=== PATIENT | female | born 1980 | race Caucasian/White ===

== ENCOUNTER 2020-06-27 18:24 | Emergency (ER) | payer BC, SELFPAY ==
[2020-06-27 18:28] VITALS: BP 118/80; PULSE 93; RESP 18; TEMP 36.8; O2SAT 98; BMI 27.4
--- NOTE | 2020-06-27 18:41 | CT_ITS ---
PROCEDURE: CT HEAD/BRAIN WO CON CLINICAL INDICATION: blunt trauma; blurred vision L.eye Head injury with headache/pain, contusion, abrasion or hematoma. Blurred vision in the left COMPARISON: No exams were available for comparison TECHNIQUE: Axial images obtained. All CT scans at the facility use one or more dose reduction, viz: automated exposure control, ma/kV adjustment per patient size (including targeted exams where dose is matched to indication, i.e. head), or iterative reconstruction technique. FINDINGS: No midline shift, mass effect, intracranial hemorrhage, hydrocephalus, or extra-axial fluid collection is evident. The calvarium has an unremarkable appearance. No mastoid effusion. No sinus air-fluid level. IMPRESSION: No acute intracranial finding Dictated by: Anil Barillas MD 06/28/2020 07:20 Anil Barillas MD in [place] 06/28/2020 07:20
--- NOTE | 2020-06-27 18:42 | XR_ITS ---
PROCEDURE: XR HIP BI W PEL1V CLINICAL INDICATION: thrown from horse Posttraumatic pain COMPARISON: No exams were available for comparison FINDINGS: No fracture or dislocation is evident. No significant degenerative change. No lytic or blastic change. Unremarkable soft tissues. IMPRESSION: No acute findings. Dictated by: Anil Barillas MD 06/28/2020 07:15 Anil Barillas MD in [place] 06/28/2020 07:15
--- NOTE | 2020-06-27 18:44 | HMH.EDFALL ---
ED Disposition Clinical Impression: Closed head injury Qualifiers: Encounter type: initial encounter Qualified Code(s): S09.90XA - Unspecified injury of head, initial encounter Disposition: Home, Self-Care Condition on Discharge: Good Prescriptions: Cyclobenzaprine HCl [Cyclobenzaprine 5mg Tab] 5 mg PO Q8HP PRN #30 tab PRN Reason: pain/spasm Transmission Status: [id number] Ketorolac Tromethamine [Toradol 10mg tablet] 10 mg PO Q6H 5 Days #20 tab Transmission Status: Pending to [id number] Referrals: Karin Chung MD [Primary Care Provider] - - Critical Care Critical Care Time: No Attestation: On 06/27/20, the high probability of a clinically significant, sudden or life threatening deterioration of the following system(s) required my full and direct attention, intervention and personal management. The time I documented below is in addition to time spent performing reported procedures but includes the following listed in this critical care notation. Medical Decision Making - Medical Records Medical records reviewed: Yes: I reviewed the patient's medical records. - Shawn Inquiry Pt receiving controlled substance: No Vital Signs: 06/27/20 18:28 06/27/20 19:00 Temperature 98.2 F Temperature Source Oral Pulse Rate [Right Brachial] 93 H 90 Respiratory Rate 18 20 Blood Pressure [Right Arm] 118/80 114/77 Blood Pressure Mean [Right Arm] 92 89 Blood Pressure Source [Right Arm] Automatic Cuff 02 Sat by Pulse Oximetry 98 100 Oxygen Delivery Method Room Air Orders (Tests/Meds): ED MEDICATIONS Discontinued Medications Generic Name Dose Route Start Last Admin Trade Name Freq PRN Reason Stop Dose Admin Ketorolac Tromethamine 30 mg 06/27/20 18:44 06/27/20 18:58 Ketorolac 30mg/Ml Vial IV 06/27/20 18:45 30 mg ONCE ONE Administration Orphenadrine Citrate 60 mg 06/27/20 18:44 06/27/20 18:58 Orphenadrine Citrate 60mg/2ml Vial IV 06/27/20 18:45 60 mg ONCE ONE Administration ORDERS Category Date Time Status CT cervical spine wo con Stat Cat Scan 06/27/20 18:[address] head/brain wo con Stat Cat Scan 06/27/20 18:41 Taken XR chest AP Stat Exams 06/27/20 19:29 Taken XR hip BI w PEL1V Stat Exams 06/27/20 18:42 Taken - Radiology Data #1 Image(s): Chest Image Reviewed: Yes I reviewed the patient's radiology results Preliminary Findings: Normal/NAD #2 Image(s): Pelvis, Hip Image Reviewed: Yes I reviewed the patient's radiology results Preliminary Findings: Normal/NAD - CT Data CT Scan: Head, C-Spine Time Received: 19:[address] Reviewed: Yes: I have reviewed the patient's CT results, I have viewed the radiologist's interpretation Preliminary Findings: Normal/NAD Findings Narrative: ? old vertebral body compression fx; no acute edema indicating acute fx Fall HPI - General Chief Complaint: Fall Stated Complaint: AO [id number] injured Head, Time Seen by Provider: 06/27/20 18:40 Mode of Arrival: Ambulatory Limitations: No Limitations Description of Symptoms (Recalled from ER Triage Doc. by RN): Pt reports she was on a horse approx 45 min ago, and she was thrown off of it. Reports she landed on her right hip, and reports that she did not lose consciousness. Pt reports left hip pain, pelvic pain, pain in her head, dizziness, and blurry vision in the left eye. A&Ox4, no neurological deficits noted on exam. - History of Present Illness HPI Narrative: This is a 39-year-old female that presents after being thrown from a horse. Patient reports horse was at [place] whenever she was thrown. She landed on the right side of her body striking her head and hip/pelvis to the ground. Patient reports pain that radiates over to the pelvis into the left hip. Patient also reports headache and had transient episode of blurred vision in the left eye. Pain is sharp constant worse with ambulation and weightbearing. Pain is mod
--- NOTE | 2020-06-27 18:46 | CT_ITS ---
PROCEDURE: CT CERVICAL SPINE WO CON CLINICAL INDICATION: thrown off horse Neck injury with pain, contusion/abrasion or hematoma, cervical sprain/strain the COMPARISON: No exams were available for comparison TECHNIQUE: Axial images obtained with sagittal and coronal reformats. All CT scans at the facility use one or more dose reduction, viz: automated exposure control, ma/kV adjustment per patient size (including targeted exams where dose is matched to indication, i.e. head), or iterative reconstruction technique. Axial spiral CT scanning performed of the cervical spine beginning at the base of the skull and continuing to the upper T-spine. 3-D multiplanar reconstruction with 3-D manipulation of volumetric data set in image rendering was completed by the radiologist and/or technologist with the supervision of the radiologist on independent workstation. FINDINGS: There is normal alignment. There is mild wedging involving the C6 vertebral body with loss of height centrally and anteriorly of approximately 30 percent. There is minimal retropulsion of the posterior superior aspect of the C7 vertebral body by approximately 3 mm. No other significant anomalies are evident. Lung apices are clear. IMPRESSION: Mild C7 vertebral body compression deformity age indeterminate with minimal retropulsion. MRI may better determine age clinically desired and to evaluate for any impingement. Dictated by: Anil Barillas MD 06/28/2020 07:24 Anil Barillas MD in [place] 06/28/2020 07:24
--- NOTE | 2020-06-27 18:51 | PC.NURSE ---
Report handed off to Charanjit RN
[2020-06-27 19:00] VITALS: BP 114/77; PULSE 90; RESP 20; O2SAT 100
--- NOTE | 2020-06-27 19:29 | XR_ITS ---
PROCEDURE: XR CHEST AP CLINICAL HISTORY: THROWN OFF HORSE Posttraumatic pain COMPARISON: No exams were available for comparison FINDINGS: The cardiomediastinal silhouette and pulmonary vascularity are within normal limits. There is mild nonspecific prominence of the azygos vein. The lungs are clear without infiltrates, suspicious nodules, or pleural effusions. No acute bony abnormalities. IMPRESSION: No acute findings. Dictated by: Anil Barillas MD 06/28/2020 07:14 Anil Barillas MD in [place] 06/28/2020 07:14
--- NOTE | 2020-06-27 19:40 | PC.NURSE ---
return from ct via stretcher at this time.
[2020-06-27 19:45] VITALS: BP 111/72; PULSE 88; RESP 16; O2SAT 98
--- NOTE | 2020-06-27 19:45 | PC.NURSE ---
speaking with MALDONADO
[2020-06-27 20:03] VITALS: BP 116/73; PULSE 87; RESP 15; TEMP 36.7; O2SAT 100
== END 2020-06-27 20:11 | disposition home or self-care (01) ==
PROVIDERS: Emergency Provider Emergency Medicine; PCP Family Medicine
DX: S09.90XA Unspecified injury of head, initial encounter (principal); S70.01XA Contusion of right hip, initial encounter; V80.010A Animal-rider injured by fall from or being thrown from horse in noncollision accident, initial encounter; Y93.52 Activity, horseback riding; Y92.73 Farm field as the place of occurrence of the external cause
CPT/HCPCS: 70450; 71045; 72125; 73521; 96374; 96375; 99283

== ENCOUNTER 2021-02-13 17:52 | Emergency (ER) | payer BC, SELFPAY ==
[2021-02-13 17:55] VITALS: BP 117/72; PULSE 78; RESP 20; TEMP 36.7; O2SAT 100; BMI 27.8
--- NOTE | 2021-02-13 18:28 | HMH.EDUTC ---
[facility] [place] Impression: COVID-19 virus test result unknown Disposition: Home, Self-Care Condition on Discharge: Good Instructions: DI for COVID-19 (Suspected or Confirmed ), COVID-19: Protecting Yourself When You're at High Risk Additional Instructions: covid swab was sent to lab, call later today for results. self isolate until test results are known to be negative Referrals: Karin Chung MD [Primary Care Provider] - Time of Disposition: 18:35 Medical Decision Making - Shawn Inquiry Pt receiving controlled substance: No Vital Signs: 02/13/21 17:55 Temperature 98.1 F Temperature Source Oral Pulse Rate [Left Brachial] 78 Respiratory Rate 20 Blood Pressure [Right Arm] 117/72 Blood Pressure Mean [Right Arm] 87 Blood Pressure Source [Right Arm] Automatic Cuff Blood Pressure Position [Right Arm] Sitting 02 Sat by Pulse Oximetry 100 Oxygen Delivery Method Room Air Orders (Tests/Meds): ORDERS Category Date Time Status Covid-19 Nasal PCR ([facility]) Routine Lab 02/13/21 18:05 [place]ceived [facility] - General Chief complaint: [facility] Stated complaint: covid test Time Seen by Provider: 02/13/21 18:29 Mode of Arrival: Ambulatory Source of Information: Patient Limitations: No Limitations Description of Symptoms (Recalled from Triage Doc. by RN): COVID TEST D/T EXPOSURE. DENIES SYMPTOMS HEENT Symptoms (Recalled from RN notes): No Resp Symptoms (Recalled from RN notes): No Skin Symptoms (Recalled from RN notes): No MS Symptoms (Recalled from RN notes): No Functional Status (Recalled from RN notes): WNL - History of Present Illness Provider Complaint: 40 yr old female presents for covid test. exposer but no symptoms - Related Data Previous Rx's Medication Instructions Recorded Cyclobenzaprine HCl 5 mg PO Q8HP PRN #30 tab 06/27/20 [Cyclobenzaprine 5mg Tab] Ketorolac Tromethamine [Toradol 10 mg PO Q6H 5 Days #20 tab 06/27/20 10mg tablet] Allergies Allergy/AdvReac Type Severity Reaction Status Date / Time No Known Allergies Allergy Verified 06/27/20 18:43 - Worker's Comp Is this a Worker's Comp case?: No [facility] History - Hepatitis A Screen Drug use history?: No High risk sexual behaviors?: No History of sexually transmitted infection?: No Currently employed?: No Childcare worker?: No Do you have indoor plumbing?: Yes Do you have electricity?: Yes Attestation statement:: This patient has been screened for Hepatitis A risk factors. I have reviewed the patient's past medical history: Yes Medical History: Denies:: Cancer, Diabetes Mellitus Type 1, Diabetes Mellitus Type 2, MRSA Amputation: No - Social History Alcohol Intake: never Occupational Status: employed Housing: house ROS Obtained: Yes Systems reviewed as appropriate & no additional complaints - Constitutional Constitutional: Reports system reviewed and no additional complaints, except as docu, Denies fever(s) - Eyes Eyes: Reports system reviewed and no additional complaints, except as docu, Denies blurry vision - ENT Ears, Nose, Mouth, and Throat: Reports system reviewed and no additional complaints, except as docu, Denies dizziness - Cardiovascular Cardiovascular: Reports system reviewed and no additional complaints, except as docu, Denies chest pain - Respiratory Respiratory: Reports system reviewed and no additional complaints, except as docu, Denies change in phlegm color - Gastrointestinal Gastrointestingal: Reports: system reviewed and no additional complaints, except as docu. Denies: vomiting - Genitourinary Female Genitourinary: Reports system reviewed and no additional complaints, except as docu - Musculoskeletal Musculoskeletal: Reports system reviewed and no additional complaints, except as docu, Denies joint pain - Integumentary/Breasts Skin/Breast: Reports system reviewed and no additional complaints, except as docu, Denies rash - Neurologic Neurolo
[2021-02-13 18:41] VITALS: BP 117/72; PULSE 78; RESP 20; TEMP 36.7; O2SAT 100
== END 2021-02-13 18:48 | disposition home or self-care (01) ==
PROVIDERS: Emergency Provider Nurse Practitioner Family; PCP Family Medicine
DX: Z20.822 Contact with and (suspected) exposure to COVID-19 (principal)
CPT/HCPCS: 99202; G0463; U0003

== ENCOUNTER 2021-05-03 17:04 | Emergency (ER) | payer BC, SELFPAY ==
[2021-05-03 17:06] VITALS: BP 108/79; PULSE 77; RESP 16; TEMP 36.9; O2SAT 99; BMI 28.3
--- NOTE | 2021-05-03 17:22 | CT_ITS ---
PROCEDURE INFORMATION: Exam: CT Abdomen And Pelvis With Contrast Exam date and time: 05/03/21 05:22 PM Age: 40 years old Clinical indication: Abdominal pain; Localized; Left lower quadrant (llq); Prior surgery; Surgery type: Gallbladder, hysterotomy; Additional info: Abd pain TECHNIQUE: Imaging protocol: Computed tomography of the abdomen and pelvis with contrast. Radiation optimization: All CT scans at this facility use at least one of these dose optimization techniques: automated exposure control; mA and/or kV adjustment per patient size (includes targeted exams where dose is matched to clinical indication); or iterative reconstruction. Contrast material: ISOVUE; Contrast volume: 75 ml; Contrast route: IV; COMPARISON: CR XR HIP BI W PEL1V 06/27/20 07:25 PM FINDINGS: Tubes, catheters and devices: None noted. Lungs: Lung bases appear clear. Heart: No significant coronary calcifications. No cardiomegaly. No significant pericardial effusion. Liver: Normal. No mass. Gallbladder and bile ducts: Cholecystectomy. No ductal dilation. Pancreas: Normal. No ductal dilation. Spleen: Normal. No splenomegaly. Adrenal glands: Normal. No mass. Kidneys and ureters: Normal. No hydronephrosis. Stomach and bowel: Unremarkable. No obstruction. No mucosal thickening. Appendix: No evidence of appendicitis. Intraperitoneal space: Unremarkable. No free air. No significant fluid collection. Retroperitoneal space: No significant retroperitoneal inflammatory changes are noted. Vasculature: Unremarkable. No abdominal aortic aneurysm. Lymph nodes: Unremarkable. No enlarged lymph nodes. Urinary bladder: Unremarkable as visualized. Reproductive: Hysterectomy. Bones/joints: Unremarkable. No acute fracture. Soft tissues: Unremarkable. IMPRESSION: No acute findings.
[2021-05-03 17:26] LABS: Microscopic, Urine URINE MICROSCOPIC (MICROSCOPIC)
[2021-05-03 17:29] LABS: Appearance,Urine CLEAR (Clear); Bilirubin,Urine Negative (Negative); Blood, Urine Negative (Negative); Color,Urine YELLOW (Yellow); Glucose,Urine (UA) Negative (Negative); Ketones,Urine Negative (Negative); Leukocyte Esterase,Urine Negative (Negative); Nitrate,Urine Negative (Negative); Protein,Urine Negative (Negative); Urobilinogen,Urine 0.2 EU/dl (0.2)
[2021-05-03 17:34] LABS: Chloride 102 mmol/L (98-107); Potassium 3.8 mmoL/L (3.5-5.1); Sodium 138 mmol/L (136-145)
[2021-05-03 17:36] LABS: Blood Urea Nitrogen 13 mg/dl (7-17); Creatinine Clearance Estimated 88 mL/min (50-200); Estimated Glomerular Filt Rate 69 ml/min (>60); GFR (African American) 83 ML/MIN (>60)
[2021-05-03 17:37] LABS: Alanine Aminotransferase 17 U/L (12-78); Albumin Level 4.5 g/dl (3.5-5.0); Albumin/Globulin Ratio 1.4 (1.1-1.8); Alkaline Phosphatase 48 U/L (38-126); Anion Gap 11.8 mEq/L (5-15); Aspartate Amino Transferase 26 U/L (14-36); Bilirubin,Total 0.3 mg/dl (0.2-1.3); Calcium 10.2 mg/dl (8.4-10.2); Carbon Dioxide 28 mmol/L (22.0-30.0); Globulin 3.3 g/dL (1.3-3.2); Glucose 101 mg/dl (74-100); Lipase 145 U/L (23-300); Total Protein,Serum 7.8 g/dl (6.3-8.2)
[2021-05-03 17:53] LABS: Basophils # 0.2 K/mm3 (0-0.2); Basophils % 2.2 % (0.1-2.0); Eosinophils # 0.1 K/mm3 (0.0-0.4); Eosinophils % 1.1 % (0.1-12.0); Hematocrit 42.4 % (37.0-47.0); Hemoglobin 14.4 g/dL (12.2-16.2); Lymphocytes # 2.6 K/mm3 (0.7-4.5); Lymphocytes % 30.8 % (10-50); Mean Corpuscular HGB Conc 33.9 g/dL (31.8-35.4); Mean Corpuscular Hemoglobin 30.8 pg (27.0-31.2); Mean Corpuscular Volume 90.9 fl (81-99); Mean Platelet Volume 8.2 fl (7.4-10.4); Monocytes # 0.4 K/mm3 (0.1-1.0); Neutrophils # 5.2 K/mm3 (1.8-7.8); Neutrophils % 60.9 % (37.0-80.0); Platelet Count 302 K/mm3 (142-424); Red Blood Count 4.67 M/mm3 (4.20-5.40); White Blood Count 8.5 K/mm3 (4.8-10.8)
--- NOTE | 2021-05-03 18:53 | HMH.EDGENADL ---
ED Disposition Clinical Impression: Abdominal pain Qualifiers: Abdominal location: epigastric Qualified Code(s): R10.13 - Epigastric pain Disposition: Home, Self-Care Condition on Discharge: Good Instructions: DI for Acute Abdominal Pain Referrals: Provider,Referral, [Primary Care Provider] - - Critical Care Critical Care Time: No Attestation: On 05/03/21, the high probability of a clinically significant, sudden or life threatening deterioration of the following system(s) required my full and direct attention, intervention and personal management. The time I documented below is in addition to time spent performing reported procedures but includes the following listed in this critical care notation. Medical Decision Making - Medical Records Medical records reviewed: Yes: I reviewed the patient's medical records. - Shawn Inquiry Pt receiving controlled substance: No Vital Signs: 05/03/21 17:06 Temperature 98.4 F Temperature Source Oral Pulse Rate [Radial] 77 Respiratory Rate 16 Blood Pressure [Right Arm] 108/79 L Blood Pressure Mean [Right Arm] 88 Blood Pressure Position [Right Arm] Sitting 02 Sat by Pulse Oximetry 99 Oxygen Delivery Method Room Air - Lab Data Lab Results 05/03/21 17:13: Urine Color Yellow, Urine Appearance Clear, Urine pH 7.0, Ur Specific Aurelia 1.010, Urine Protein Negative, Urine Glucose (UA) Negative, Urine Ketones Negative, Urine Blood Negative, Urine Nitrate Negative, Urine Bilirubin Negative, Urine Urobilinogen 0.2, Ur Leukocyte Esterase Negative, Urine RBC None, Urine WBC None, Ur Squamous Epith Cells 5-10, Urine Bacteria None 05/03/21 17:23: WBC 8.5, RBC 4.67, Hgb 14.4, Hct 42.4, MCV 90.9, MCH 30.8, MCHC 33.9, RDW 13.0, Plt Count 302, MPV 8.2, Neut % (Auto) 60.9, Lymph % (Auto) 30.8, Henderson % (Auto) 5.0, Eos % (Auto) 1.1, Baso % (Auto) 2.2 H, Neut # (Auto) 5.2, Lymph # (Auto) 2.6, Henderson # (Auto) 0.4, Eos # (Auto) 0.1, Baso # (Auto) 0.2 05/03/21 17:23: Sodium 138, Potassium 3.8, Chloride 102, Carbon Dioxide 28, Anion Gap 11.8, BUN 13, Creatinine 0.90, Estimated Creat Clear 88, Estimated GFR 69, Est GFR ( Amer) 83, Glucose 101 H, Calcium 10.2, Total Bilirubin 0.3, AST 26, ALT 17, Alkaline Phosphatase 48, Total Protein 7.8, Albumin 4.5, Globulin 3.3 H, Albumin/Globulin Ratio 1.4, Lipase 145 Result diagrams: 05/03/21 17:23 05/03/21 17:23 Orders (Tests/Meds): ED MEDICATIONS Discontinued Medications Generic Name Dose Route Start Last Admin Trade Name Freq PRN Reason Stop Dose Admin Belladonna Alkaloids 60 ml 05/03/21 18:50 05/03/21 18:59 Gi Cocktail 60ml Udc PO 05/03/21 18:51 60 ml ONCE ONE Administration Iopamidol 75 ml 05/03/21 17:46 05/03/21 17:47 Iopamidol-370 (76%);100ml Bottle IV 05/03/21 17:47 75 ml ONCE ONE Administration Sodium Chloride 10 ml 05/03/21 17:46 05/03/21 17:47 Sodium Chloride 0.9% 10ml Syr (Rad Only) IV 05/03/21 17:47 10 ml ONCE ONE Administration Medical Decision Narrative: Patient is a 40-year-old female presents the ED today for further evaluation of abdominal pain. Patient is well-appearing on initial evaluation in no acute distress with stable vital signs. I have ordered CBC CMP lipase, CT abdomen pelvis with IV contrast and urinalysis. Patient not requesting any pain medications at this time, I have offered nausea medication and additionally states she will continue to monitor her symptoms and see how she does. Patient CT abdomen pelvis is been performed with no evidence of intra-abdominal infection or perforation, no other acute intra-abdominal findings on radiology interpretation. I reviewed patient's lab evaluation with no evidence of anemia kidney dysfunction or liver or electrolyte abnormalities. Urinalysis within normal limits. Given a GI cocktail, and not have significant symptom improvement. Offered patient to go home on Zofran, Carafate, omeprazole, patient states he does not want to take
[2021-05-03 20:36] VITALS: BP 121/74; PULSE 72; RESP 16; TEMP 36.9; O2SAT 99
== END 2021-05-03 20:37 | disposition home or self-care (01) ==
PROVIDERS: Emergency Provider Student in an Organized Health Care Education/Training Program
DX: R10.13 Epigastric pain (principal); R11.0 Nausea
CPT/HCPCS: 74177; 80053; 81001; 83690; 85025; 99283; Q9967

== ENCOUNTER 2021-07-19 09:38 | Emergency (ER) | payer BC, SELFPAY ==
[2021-07-19 11:10] VITALS: BP 111/78; PULSE 91; RESP 16; TEMP 37.6; O2SAT 98; BMI 26.7
[2021-07-19 11:15] LABS: UTC Strep Screen (Rapid) Positive (Negative)
--- NOTE | 2021-07-19 11:30 | HMH.EDUTC ---
[facility] [place] Impression: Strep [place] Disposition: Home, Self-Care Condition on Discharge: Good Instructions: DI for Strep Throat, Strep Throat Additional Instructions: *Monitor Temp, Over the counter Motrin or Tylenol as directed/as needed Tylenol every 4 hours and Motrin every 6 hours (as long as your family doctor has told you that you can take it) for fever or pain. and straight to ER if unable to lower temp less than 101.0 after medication given *Warm salt water gargles may help to soothe the throat *Throat Lozenges *Warm fluids like tea with honey may help to soothe the throat *Sleep elevated *Humidifier/Vaporizer *If you did not take Penicillin shot or was unable to, start taking antibiotic immediately and make sure that you take it for the FULL length of time although you should start to feel better in 24-48 hours *change toothbrush and toothpaste 24-48 hours after starting to take antibiotics so you do not reinfect yourself Monitor Temp. Tylenol and/or Ibuprofen as needed. ER if fever is no less than 101 despite alternating Tylenol and Ibuprofen * Encourage fluids, water, Gatorade, powerade, pedialyte if infant/toddler/or child *Cold fluids, popsicles and ice cream may feel good on his throat Follow up IMMEDIATELY for new or worsening symptoms or no Noticeable improvement over the next 48-72 hours. 911 for difficulty breathing or swallowing You were tested for today for COVID19 your test result should be back in the next 24-48 hours, you check your results on the [facility] my health portal if you have trouble logging on or seeing your results you may call You was given a handout with instructions for Self Quarantine and Self isolation for while you wait on test results and what to do if they are positive If you are positive the Health Dept will be contacting you also Make sure to take your Vitamins Vit. C Vit D and Zinc if you can take them Prescriptions: Amoxicillin [Amoxicillin 500mg Cap] 500 mg PO TID #30 cap Transmission Status: Pending to [id number] Referrals: Provider,Referral, MD [Primary Care Provider] - As needed Forms: Work/School Release Medical Decision Making - Shawn Inquiry Pt receiving controlled substance: No Shawn was queried for this patient: No Vital Signs: 07/19/21 11:10 Temperature 99.6 F Temperature Source Oral Pulse Rate [Right Radial] 91 H Respiratory Rate 16 Blood Pressure [Right Arm] 111/78 Blood Pressure Mean [Right Arm] 89 Blood Pressure Source [Right Arm] Automatic Cuff Blood Pressure Position [Right Arm] Sitting 02 Sat by Pulse Oximetry 98 Oxygen Delivery Method Room Air - Lab Data Lab results reviewed: Yes: I reviewed the patient's lab results. Lab Results 07/19/21 11:12: Strep Scn Rapid [facility] Positive [facility] - General Stated complaint: sore throat,headache,body aches Time Seen by Provider: 07/19/21 11:30 Mode of Arrival: Ambulatory Source of Information: Patient Limitations: No Limitations Description of Symptoms (Recalled from Triage Doc. by RN): C/O fever, sore throat, [place], bodyaches since Sunday HEENT Symptoms (Recalled from RN notes): Yes (sore throat, [place]) Resp Symptoms (Recalled from RN notes): No Skin Symptoms (Recalled from RN notes): No MS Symptoms (Recalled from RN notes): No Functional Status (Recalled from RN notes): n/a - History of Present Illness Provider Complaint: Patient states that she has not felt well since Sunday State that she has been having headachey fever, and sore throat States that today she was still not feeling well so she came in - Related Data Previous Rx's Medication Instructions Recorded Cyclobenzaprine HCl 5 mg PO Q8HP PRN #30 tab 06/27/20 [Cyclobenzaprine 5mg Tab] Ketorolac Tromethamine [Toradol 10 mg PO Q6H 5 Days #20 tab 06/27/20 10mg tablet] Amoxicillin [Amoxicillin 500mg 500 mg PO TID #30 cap 07/19/21 Cap] Allergies Allergy/AdvReac Type Severity Reaction
[2021-07-19 11:51] VITALS: BP 111/78; PULSE 91; RESP 16; TEMP 37.6; O2SAT 98
== END 2021-07-19 11:52 | disposition home or self-care (01) ==
PROVIDERS: Emergency Provider Nurse Practitioner
DX: J02.0 Streptococcal pharyngitis (principal); U07.1 COVID-19
CPT/HCPCS: 87880; 99203; C9803; G0463; U0003; U0005

== ENCOUNTER 2022-01-10 14:22 | Emergency (ER) | payer BC, OTHER, SELFPAY ==
[2022-01-10 15:05] VITALS: BP 111/74; PULSE 78; RESP 19; TEMP 36.8; O2SAT 99; BMI 25.1
[2022-01-10 15:21] VITALS: BP 111/74; PULSE 78; RESP 19; TEMP 36.8; O2SAT 99
--- NOTE | 2022-01-10 15:31 | HMH.EDUTC ---
[facility] Disposition Clinical Impression: URI (upper respiratory infection) Qualifiers: URI type: unspecified URI Qualified Code(s): J06.9 - Acute upper respiratory infection, unspecified Disposition: Home, Self-Care Condition on Discharge: Good Instructions: Sore Throat, Azithromycin, Methylprednisolone Additional Instructions: *Monitor Temp, Over the counter Motrin or Tylenol as directed/as needed Tylenol every 4 hours and Motrin every 6 hours (as long as your family doctor has told you that you can take it) for fever or pain. and straight to ER if unable to lower temp less than 101.0 after medication given *Warm salt water gargles may help to soothe the throat *Throat Lozenges *Warm fluids like tea with honey may help to soothe the throat *Sleep elevated *Humidifier/Vaporizer Take medication as prescribed Your throat swab was sent for culture. Those results are typically sent to your primary care. Be sure to follow up in 2-3 days with your family doctor/primary care physician if no improvement so they can review those result and treat if necessary. If you don?t have a primary care doctor, I recommend you get one but in the mean time, you will have to return to a walk in clinic Follow up IMMEDIATELY for new or worsening symptoms or no Noticeable improvement over the next 48-72 hours. 911 for difficulty breathing or swallowing Prescriptions: methylPREDNISolone [Medrol 4mg tab] 4 mg PO DIRECTED #21 tab Transmission Status: [id number] Azithromycin [Z-Luis Fernando 250mg Tab] 250 mg PO DIRECTED #6 tab Transmission Status: Pending to [id number] Referrals: Provider,Referral, [Primary Care Provider] - As needed Time of Disposition: 15:49 Medical Decision Making - Shawn Inquiry Pt receiving controlled substance: No Shawn was queried for this patient: No Vital Signs: 01/10/22 15:05 01/10/22 15:21 Temperature 98.3 F 98.3 F Temperature Source Oral Pulse Rate 78 Pulse Rate [Right Brachial] 78 Respiratory Rate 19 19 Blood Pressure 111/74 Blood Pressure [Right Arm] 111/74 Blood Pressure Mean [Right Arm] 86 Blood Pressure Source [Right Arm] Automatic Cuff Blood Pressure Position [Right Arm] Sitting 02 Sat by Pulse Oximetry 99 Oxygen Delivery Method Room Air - Lab Data Lab Results 01/10/22 15:06: Group A Strep Rapid Negative Orders (Tests/Meds): ORDERS Category Date Time Status Strep Screen Confirmation Stat Micro 01/10/22 15:06 Received [facility] HPI - General Stated complaint: sore throat, left ear pain Time Seen by Provider: 01/10/22 15:31 Mode of Arrival: Ambulatory Source of Information: Patient Limitations: No Limitations Description of Symptoms (Recalled from Triage Doc. by RN): PATIENT C/O SORE THROAT X 1 WEEK HEENT Symptoms (Recalled from RN notes): Yes Resp Symptoms (Recalled from RN notes): No Skin Symptoms (Recalled from RN notes): No MS Symptoms (Recalled from RN notes): No Functional Status (Recalled from RN notes): WNL - History of Present Illness Provider Complaint: Patient state that she has been having sore throat for about a week and sore in her throat just below her ear State that she feels like she may have strep throat States that also she has been having pain in her left ear on and off so today she came in when she felt like she was loosing her voice - Related Data Previous Rx's Medication Instructions Recorded Azithromycin [Z-Luis Fernando 250mg Tab] 250 mg PO DIRECTED #6 tab 01/10/22 methylPREDNISolone [Medrol 4mg 4 mg PO DIRECTED #21 tab 01/10/22 tab] Allergies Allergy/AdvReac Type Severity Reaction Status Date / Time No Known Allergies Allergy Verified 06/27/20 18:43 - Worker's Comp Is this a Worker's Comp case?: No [facility] History - Hepatitis A Screen Attestation statement:: This patient has been screened for Hepatitis A risk factors. I have reviewed the patient's past medical history:
[2022-01-10 15:34] LABS: Strep Scrn Group A (Rapid) Negative (Negative)
== END 2022-01-10 15:59 | disposition home or self-care (01) ==
PROVIDERS: Emergency Provider Nurse Practitioner
DX: J06.9 Acute upper respiratory infection, unspecified (principal)
CPT/HCPCS: 87430; 99212; G0463

== ENCOUNTER 2023-03-17 10:59 | Emergency (ER) | payer BC, OTHER, SELFPAY ==
--- NOTE | 2023-03-17 11:09 | EXP.UTC ---
Discharge Plan Disposition Patient Disposition: Home, Self-Care Condition: Good Prescriptions Prescriptions: New amoxicillin [amoxicillin] 875 mg tablet 875 mg PO Q12H Qty: 20 0RF methylprednisolone 4 mg Tablets,Dose Pack 4 mg PO DIRECTED Qty: 21 0RF xcmvzqtgfnouekc-gidrqbfrq-CQ [Bromfed DM] 2-30-10 mg/5 mL Syrup 5 ml PO Q6H PRN (Reason: Cough) Qty: 240 0RF No Action pantoprazole 40 mg tablet,delayed release (DR/EC) 40 mg PO DAILY Patient Comments: TAKE 1 TABLET BY MOUTH ONCE DAILY Referrals Follow up/Referrals: Rohan Antunez MD [Primary Care Provider] - See instructions Activity Restrictions/Add. Instructions Additional Instructions/Restrictions: Drink plenty of fluids. Take tylenol or ibuprofen for pain or fever. Take the medications as directed. Follow up with your regular doctor. GO TO THE ER FOR ANY WORSENING SYMPTOMS Clinical Impressions Clinical Impression: Strep throat Stand Alone Forms Stand Alone Forms: Work/School Release Instructions Patient Instructions: Strep Throat, DI for Strep Throat Discharge ED Provider: Tyrell Flores [facility] General Stated complaint: sore throat,headache,runny nose Time Seen by Provider: 03/17/23 11:09 History of Present Illness Provider Complaint: She states that for the past 3 days she has had sore throat, fever, chills, cough and malaise. Related Data Home Medications Medication Instructions Recorded Confirmed pantoprazole 40 mg tablet,delayed 40 mg PO DAILY gerd 03/17/23 03/17/23 release Previous Rx's Medication Instructions Recorded amoxicillin 875 mg tablet 875 mg PO Q12H #20 tabs 03/17/23 zudnutuerosewqe-ewcayezxcqdwygy-CU 5 ml PO Q6H PRN Cough #240 mL 03/17/23 2 mg-30 mg-10 mg/5 mL oral syrup (Bromfed DM) methylprednisolone 4 mg tablets in 4 mg PO DIRECTED #21 tabs 03/17/23 a dose pack Allergies Allergy/AdvReac Type Severity Reaction Status Date / Time No Known Allergies Allergy Verified 03/17/23 11:20 [facility] Disclaimer: The information contained in this section may have been updated after the patient was seen, as this information can be updated by other users. Social History Smoking Status: Never smoker alcohol intake: never current occupational status: other Travel in the last 8 weeks: None housing: house ROS Obtained: Yes All systems reviewed & no additional complaints except as documented Constitutional Constitutional: Reports chills and Reports fever(s) Eyes Eyes: Denies eye discharge ENT Ears, Nose, Mouth, and Throat: Reports as per HPI Cardiovascular Cardiovascular: Denies chest pain Respiratory Respiratory: Denies chest congestion and Reports cough Gastrointestinal Gastrointestingal: Reports nausea; Denies abdominal pain, constipation, cramping, diarrhea or vomiting Musculoskeletal Musculoskeletal: Denies arthralgias Integumentary/Breasts Skin/Breast: Denies rash Neurologic Neurologic: Denies paresthesias Physical Exam General General appearance: alert and in no apparent distress Head Head exam: atraumatic, normocephalic and normal inspection Eye Eye exam: Present normal appearance, PERRL and EOMI ENT ENT exam: Present mucous membranes moist and normal external ear exam Expanded ENT Exam TM/Canal exam: Bilateral TM: erythema and bulging Nose exam: Absent sinus tenderness Mouth exam: Present normal external inspection; Absent drooling Teeth exam: Present normal inspection Throat exam: Present tonsillar erythema, tonsillomegaly and tonsillar exudate Neck Neck exam: Present normal inspection, full ROM and trachea midline; Absent tenderness, meningismus or lymphadenopathy Chest Chest inspection: Present normal inspection and symmetric chest wall rise; Absent tenderness Respiratory Respiratory exam: Present normal lung sounds bilaterally; Absent respiratory distress, wheezes or stridor C
[2023-03-17 11:10] VITALS: BP 112/69; PULSE 81; RESP 18; TEMP 36.6; O2SAT 98; BMI 26.5
[2023-03-17 11:21] LABS: UTC Strep Screen (Rapid) Positive (Negative)
[2023-03-17 11:43] VITALS: BP 112/69; PULSE 81; RESP 18; TEMP 36.6; O2SAT 98
== END 2023-03-17 11:43 | disposition home or self-care (01) ==
PROVIDERS: Emergency Provider Nurse Practitioner Family; PCP Family Medicine
DX: J02.0 Streptococcal pharyngitis (principal); R50.9 Fever, unspecified; R53.81 Other malaise
CPT/HCPCS: 87880; 99212; 99214; G0463

== ENCOUNTER → 2023-06-21 11:18 | Outpatient (CLI) | payer BC, OTHER, SELFPAY ==
--- NOTE | 2023-06-21 11:25 | CT_ITS ---
FINAL REPORT TECHNIQUE: After the administration of oral and intravenous contrast, axial images were obtained through the abdomen and pelvis by computed tomography. The study was performed with techniques to keep radiation dose as low as reasonably achievable, (ALARA). Individual dose reduction techniques using automated exposure control or adjustment of mA and/or kV according to the patient's size were employed. CLINICAL HISTORY: RIGHT LOWER PAIN FEVER AND CHILLS COMPARISON: 05/03/2021 FINDINGS: Abdomen: The lung bases are clear. The liver parenchyma is homogeneous. The gallbladder is absent. The spleen, pancreas, adrenals and kidneys appear unremarkable. The aorta is normal in caliber. There is no free fluid or adenopathy. Pelvis: The appendix is unremarkable. The urinary bladder is incompletely distended. There is no free fluid or adenopathy. IMPRESSION: No acute intra-abdominal process. Reviewed, Interpreted and Dictated by Shahid Chen MD Transcribed by Yuridia Abdul Authenticated and [facility]
== END ==
LOC: RAD 11:22
PROVIDERS: PCP Family Medicine; Visit Provider Family Medicine
DX: R10.823 Right lower quadrant rebound abdominal tenderness (principal); R50.9 Fever, unspecified
CPT/HCPCS: 74177; Q9967

== ENCOUNTER → 2023-06-27 12:25 | Outpatient (CLI) | payer BC, OTHER, SELFPAY ==
[2023-06-27 12:30] LABS: Adenovirus F 40/41, stool Not Detected (NotDetected); Astrovirus Not Detected (NotDetected); Campylobacter Not Detected (NotDetected); Clostridium Difficile A/B, PCR Not Detected (NotDetected); Cryptosporidium Not Detected (NotDetected); Cyclospora Cayetanesis Not Detected (NotDetected); Entamoeba histolytica Not Detected (NotDetected); Enteroaggregative E coli Not Detected (NotDetected); Enteropathogenic E coli Not Detected (NotDetected); Enterotoxigenic E coli Not Detected (NotDetected); Giardia lamblia Not Detected (NotDetected); Norovirus Not Detected (NotDetected); Plesimonas Shigalloides, PCR Not Detected (NotDetected); Rotavirus A Not Detected (NotDetected); Salmonella, PCR Not Detected (NotDetected); Shiga-like toxin E coli Not Detected (NotDetected); Shigella Enterovasive E coli Not Detected (NotDetected); Vibrio Cholerae Not Detected (NotDetected); Vibrio, PCR Not Detected (NotDetected); Yersinia Entercolitica, PCR Not Detected (NotDetected)
[2023-07-02 08:53] LABS: Sapovirus Not Detected (NotDetected)
== END ==
LOC: LAB.DROPOF 12:26
PROVIDERS: PCP Family Medicine; Visit Provider Family Medicine
DX: R19.7 Diarrhea, unspecified (principal)
CPT/HCPCS: 87507

== ENCOUNTER 2023-08-15 09:24 | Emergency (ER) | payer BC, OTHER, SELFPAY ==
[2023-08-15 09:49] VITALS: BP 122/76; PULSE 104; RESP 16; TEMP 38.4; O2SAT 100; BMI 27.3
[2023-08-15 09:52] LABS: Coronavirus 19, PCR Not Detected (NotDetected); Influenza B, PCR Not Detected (NotDetected)
--- NOTE | 2023-08-15 09:52 | ED_ITS ---
Discharge Plan Disposition Patient Disposition: Home, Self-Care Prescriptions Prescriptions: New oseltamivir [Tamiflu] 75 mg capsule 75 mg PO BID 5 Days Qty: 10 0RF ondansetron 4 mg tablet,disintegrating 4 mg PO Q6H PRN (Reason: nausea and vomiting) Qty: 10 0RF No Action pantoprazole 40 mg tablet,delayed release (DR/EC) 40 mg PO DAILY Patient Comments: TAKE 1 TABLET BY MOUTH ONCE DAILY amoxicillin [amoxicillin] 875 mg tablet 875 mg PO Q12H Qty: 20 0RF methylprednisolone 4 mg Tablets,Dose Pack 4 mg PO DIRECTED Qty: 21 0RF skgarqtznnmflqv-nssnpmtfs-SE [Bromfed DM] 2-30-10 mg/5 mL Syrup 5 ml PO Q6H PRN (Reason: Cough) Qty: 240 0RF Referrals Follow up/Referrals: Rohan Antunez MD [Primary Care Provider] - See instructions Activity Restrictions/Add. Instructions Additional Instructions/Restrictions: Call your family doctor to establish care for this visit to the emergency department and schedule follow-up within 48 hours to ensure improvement. If you have any worsening of your condition or any other concerning signs or symptoms, return to the emergency department or your primary care doctor for further evaluation. Take Tylenol 1000 mg every 6 hours (4 times daily) and ibuprofen 400 mg every 6 hours (4 times daily) as needed with food and water to prevent GI upset and kidney damage. Clinical Impressions Clinical Impression: Influenza A Discharge ED Provider: Clifton Flores General Adult HPI General Chief complaint: Upper Respiratory Infection Stated complaint: fever, body aches, chills Time Seen by Provider: 08/15/23 09:30 History of Present Illness HPI narrative: 42-year-old female no relevant medical history presenting with multiple complaints. Patient states that she has had fevers, chills, body aches, sore throat, etc. since Sunday. She is now on day 3 of illness. Has been taking Tylenol and Motrin for fever, last took Motrin earlier this morning, 08/15. States that she is intermittently coughing, but nonproductive. Having symptoms currently. 1 episode of nonbloody, nonbilious vomiting. No known sick contacts. Patient states that I took a COVID test at home and it said positive, but changed to negative. Related Data Home Medications Medication Instructions Recorded Confirmed pantoprazole 40 mg tablet,delayed 40 mg PO DAILY gerd 03/17/23 03/17/23 release Previous Rx's Medication Instructions Recorded amoxicillin 875 mg tablet 875 mg PO Q12H #20 tabs 03/17/23 kyddipwrhsvssxr-ntmcztyjchxdfvm-WQ 5 ml PO Q6H PRN Cough #240 mL 03/17/23 2 mg-30 mg-10 mg/5 mL oral syrup (Bromfed DM) methylprednisolone 4 mg tablets in 4 mg PO DIRECTED #21 tabs 03/17/23 a dose pack ondansetron 4 mg disintegrating 4 mg PO Q6H PRN nausea and 08/15/23 tablet vomiting #10 tabs oseltamivir 75 mg capsule (Tamiflu) 75 mg PO BID 5 days #10 caps 08/15/23 Allergies Allergy/AdvReac Type Severity Reaction Status Date / Time No Known Allergies Allergy Verified 08/15/23 09:55 [facility] Disclaimer: The information contained in this section may have been updated after the patient was seen, as this information can be updated by other users. Social History (Updated 03/18/23 @ 15:23 by Tyrell Flores APRN) Smoking Status: Never smoker alcohol intake: never current occupational status: other Travel in the last 8 weeks: None housing: house ROS Obtained: Yes All systems reviewed & no additional complaints except as documented Physical Exam General General appearance: alert and in no apparent distress Head Head exam: atraumatic and normocephalic Eye Eye exam: Present normal appearance, PERRL and EOMI ENT ENT exam: Present mucous membranes moist, mucous membranes dry and TM's normal bilaterally Neck Neck exam: Present normal inspection, full ROM and trachea midline Respiratory Respiratory exam: Present normal lung sounds bilaterally; Absent respiratory distress, wheezes, stridor, accessory muscle use or prolonged expiratory phase Cardiovascular Cardiovascular exam: Present normal rhythm and tachycardia Abdominal Exam Abdominal exam: Present soft; Absent distention, tenderness, guarding, rebound or rigidity Extremities Exam Extremities exam: Absent edema Neurological Exam Neurological exam: Present alert, oriented X3, CN II-XII intact and normal gait; Absent motor sensory deficit Skin Skin exam: Present warm, dry and erythema; Absent diaphoresis Medical Decision Making Medical Records Medical records reviewed: Yes I reviewed the patient's medical records. Shawn Inquiry Pt receiving controlled substance: No Shawn was queried for this patient: No Vital Signs: 08/15/23 09:49 Temperature 101.2 F H Temperature Source Oral Pulse Rate [Left] 104 H Respiratory Rate 16 Blood Pressure [Right Arm] 122/76 Blood Pressure Mean [Right Arm] 91 Blood Pressure Source [Right Arm] Automatic Cuff Blood Pressure Position [Right Arm] Sitting 02 Sat by Pulse Oximetry 100 Oxygen Delivery Method Room Air Lab Data Lab Results 08/15/23 09:47: SARS-CoV-2 (PCR) Not detected, Influenza A Untype (PCR) Detected A, Influenza Type B (PCR) Not detected Orders (Tests/Meds): ED MEDICATIONS Discontinued Medications Generic Name Dose Route Start Last Admin Trade Name Freq PRN Reason Stop Dose Admin Acetaminophen 1,000 mg 08/15/23 09:37 08/15/23 09:57 Acetaminophen 500mg Tab PO 08/15/23 09:38 1,000 mg ONCE ONE Administration Dexamethasone Sodium Phosphate 10 mg 08/15/23 09:37 08/15/23 09:57 Dexamethasone 4mg/Ml 1ml Vial IV 08/15/23 09:38 10 mg ONCE ONE Administration Lactated Ringer's 1,000 mls @ 999 mls/hr 08/15/23 09:37 08/15/23 09:59 Lactated Ringer's 1000 Ml Bag IV 08/15/23 10:37 999 mls/hr .Q1H1M ONE Administration Ketorolac Tromethamine 15 mg 08/15/23 09:37 08/15/23 09:57 Ketorolac 30mg/Ml Vial IV 08/15/23 09:38 15 mg ONCE ONE Administration ORDERS Category Date Time Status Rapid PCR Covid and Flu A/B Stat Lab 08/15/23 09:47 Completed Medical Decision Narrative: 42-year-old female no relevant medical history presenting with multiple complaints. Patient states that she has had fevers, chills, body aches, sore throat, etc. since Sunday. She is now on day 3 of illness. Has been taking Tylenol and Motrin for fever, last took Motrin earlier this morning, 08/15. States that she is intermittently coughing, but nonproductive. Having symptoms currently. 1 episode of nonbloody, nonbilious vomiting. No known sick contacts. Patient states that I took a COVID test at home and it said positive, but changed to negative.. History was obtained via conversation with patient. On arrival, patient hemodynamically stable, alert, oriented x4, appropriate, GCS 15, moving all extremities spontaneously, pupils equal and reactive to light. Full physical exam performed and significant for well-appearing woman who is tearful. Tachycardic, febrile, facial erythema related to fever. Lungs are clear to auscultation, cardiac exam otherwise normal, no evidence of rash. Patient does have pharyngeal erythema, no tonsillitis or exudate. Bilateral TMs are normal. No lymphadenopathy. Differential includes flu, COVID, other viral syndrome. Patient was given Decadron, Tylenol, Toradol, LR for symptomatic management and correction of underlying abnormalities. Workup independently interpreted and significant for flu a positive. On reevaluation, patient feeling little better after fluids and meds. Given patient presentation, workup, history, this most likely represents influenza A. Patient within treatment window, so Tamiflu and Zofran sent to pharmacy of choice. Because patient at baseline without signs or symptoms of clinical decom pensation, deemed appropriate for discharge. Results were relayed to patient who voiced understanding and were agreeable to outpatient management and follow up. At the time of discharge the patient was hemodynamically stable, tolerating PO, and mobilizing appropriately. Critical Care Critical Care Time Critical Care Time: No
[2023-08-15] MEDS: DEXAMETHASONE 4MG/ML 1ML VIAL 10 MG IV (09:57)
[2023-08-15] MEDS: ACETAMINOPHEN 500MG TAB 1000 MG PO (09:57)
[2023-08-15] MEDS: KETOROLAC 30MG/ML VIAL 15 MG IV (09:57)
[2023-08-15] MEDS: LACTATED RINGERS 1000ML 1,000 ML 999 ML IV (09:59)
[2023-08-15 10:44] LABS: Influenza A, PCR Detected (NotDetected)
[2023-08-15 11:12] VITALS: BP 114/83; PULSE 87; RESP 18; TEMP 36.7; O2SAT 97
== END 2023-08-15 11:15 | disposition home or self-care (01) ==
PROVIDERS: Emergency Provider Emergency Medicine; PCP Family Medicine
DX: J10.1 Influenza due to other identified influenza virus with other respiratory manifestations (principal); J10.2 Influenza due to other identified influenza virus with gastrointestinal manifestations; R11.10 Vomiting, unspecified; R50.9 Fever, unspecified; R07.0 Pain in throat; R05.9 Cough, unspecified
CPT/HCPCS: 87636; 96361; 96374; 96375; 99284